=== PATIENT | female | born 1965 | race Caucasian/White ===

== ENCOUNTER → 2024-02-01 14:38 | Outpatient (REF) | payer BC, SELFPAY | LOC: HWRAD 14:38 | PROVIDERS: ATTENDING PHYSICIAN Nurse Practitioner Family; FAMILY PHYSICIAN Internal Medicine | DX: N95.0 Postmenopausal bleeding (principal) | CPT/HCPCS: 76830; 76856 ==

== ENCOUNTER → 2024-05-23 13:42 | Outpatient (REF) | payer BC, SELFPAY | LOC: WDC 13:42 | PROVIDERS: ATTENDING PHYSICIAN Nurse Practitioner Family; FAMILY PHYSICIAN Internal Medicine | DX: Z12.31 Encounter for screening mammogram for malignant neoplasm of breast (principal) | CPT/HCPCS: 77063; 77067 ==

== ENCOUNTER 2024-05-28 06:18 | Day surgery (SDC) | payer BC, SELFPAY ==
[2024-05-21 12:32] VITALS: BMI 16.9
[2024-05-28] VITALS (10 sets, daily range): BP systolic 88–113; BP diastolic 46–78; BMI 17.7
[2024-05-28] MEDS: NEURONTIN 100 MG PO (10:05)
[2024-05-28] MEDS: NORMOSOL-R/PLASMALYTE-A 1000 IV (10:20)
[2024-05-28] MEDS: DILAUDID 0.25 MG IV ×2 (12:17→12:32)
--- NOTE | 2024-05-28 13:17 | SUR.PHASEI ---
medicated x2 with .25mg IV Dilaudid for abdominal cramping. Also used warm blanket to abd for cramping. some relief, pain tolerable, vss, - spoke with Dr Calabrese in [place] - questions answered.
--- NOTE | 2024-05-28 23:00 | W.IMMPOSTOP ---
Surgical Immed Post Op Note
-
Primary Surgeon: Kiana Calabrese DO
Assisting Surgeon: none
Pre-op Diagnosis: Postmenopausal bleeding
Post-op Diagnosis: same
Procedure Performed: Diagnostic hysteroscopy D&C
Anesthesia Type: general LMA Dr. Perez
Specimen / Cultures: 1. pap smear 2. endocervical curettings 3. endometrial curettings
Estimated Blood Loss: 2ml
Complications: none
Operative Findings: Endometrial lining is thin, atrophic with no evidence of mass, polyp, tumor. Normal appearing endocervical canal.
Counts correct times 2.
Stable to recovery.
Dictated.
== END 2024-05-28 13:25 | disposition home or self-care (01) ==
LOC: SDS 06:18
PROVIDERS: ATTENDING PHYSICIAN Obstetrics & Gynecology; FAMILY PHYSICIAN Internal Medicine
DX: N95.0 Postmenopausal bleeding (principal); N85.8 Other specified noninflammatory disorders of uterus
CPT/HCPCS: 58558; 88305; 36415; 88341; 88342; 93005; G0123

== ENCOUNTER → 2025-01-22 09:10 | Outpatient (REF) | payer BC, SELFPAY | LOC: MRI 09:10 | PROVIDERS: ATTENDING PHYSICIAN Internal Medicine Rheumatology; FAMILY PHYSICIAN Internal Medicine | DX: M32.9 Systemic lupus erythematosus, unspecified (principal) | CPT/HCPCS: 72195 ==

== ENCOUNTER 2025-04-27 06:34 | Emergency (ER) | payer BC, SELFPAY ==
[2025-04-27 06:37] VITALS: BP 92/50
[2025-04-27 07:00] VITALS: BMI 17.1
[2025-04-27 07:10] VITALS: BP 84/51
[2025-04-27 07:31] LABS: Hematocrit 32.2 % (37.0-47.0); Hemoglobin 10.8 g/dL (12.0-16.0); Mean Corp Hgb Conc. 33.5 g/dL (33.0-37.0); Mean Corpuscular Volume 101.6 fL (81.0-99.0); Platelet Count 235 10^3/uL (130-400); Red Cell Dist. Width 12.5 % (11.5-14.5)
[2025-04-27 07:39] LABS: Urine Character Clear (Clear)
[2025-04-27 07:44] LABS: ALT (SGPT) 40 U/L (0-35); AST (SGOT) 40 U/L (14-36); Albumin 3.8 g/dl (3.5-5.0); Alkaline Phosphatase 32 U/L (38-126); Blood Urea Nitrogen 17 mg/dl (7-17); Calcium 8.8 mg/dl (8.4-10.2); Carbon Dioxide 28 mmol/L (22-30); Chloride 105 mmol/L (98-107); Estimated Creatinine Clearance 60 ml/min; Glucose 92 mg/dl (70-99); Lipase 423 U/L (23-300); Potassium 4.5 mmol/L (3.5-5.1); Sodium 136 mmol/L (135-145); Total Protein 6.5 g/dl (6.3-8.2); eGFR > 60.00
[2025-04-27 08:10] LABS: Urine Red Blood Cell 0-2 /HPF (0-2); Urine Squamous Cell 0-2 /LPF (Few); Urine White Cell 0-2 /HPF (0-5)
--- NOTE | 2025-04-27 08:25 | ED.GENMED ---
History of Present Illness
General
Chief Complaint: Flank Pain
Source: patient
Exam Limitations: none
Time Seen by Provider: 04/27/25 07:47
Nursing documentation reviewed up to this point in time: agreed with
History of Present Illness
History of Present Illness:
59-year-old female with history as noted significant for lupus, CIDP who presents to the emergency department for evaluation of abdominal and flank pain. Patient reports symptoms have been intermittent over the past 4 weeks�she describes waxing and
waning pain in the right upper abdomen that radiates towards the right flank. She has not noticed any clear trigger although symptoms generally seem to be worse at night. No relieving factors noted. She reports she has associated nausea but has
not had any vomiting although this morning she said she nearly vomited which ultimately prompted ER visit. She denies any diarrhea or constipation reports normal color to her stools. She denies any dysuria, hematuria, change in frequency or dark
urine. She denies having had similar symptoms in the past. Denies prior abdominal surgeries. Of note she is on CellCept and Plaquenil chronically.
Past History
Past History
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
ED Past Surgical History: Orthopedic (Had right hip pinned 10 weeks ago for a stress fracture) and Other
Social History
Tobacco: Non-smoker
Alcohol: None
Drug: None
Personal: Single
Living: with family
Family History
Family History: Other (Father with pancreatic cancer)
Review of Systems
Review of Systems
All Other Systems: ROS reviewed and negative except as documented in HPI and ROS
Constitutional: Denies fever or chills
Respiratory: Denies trouble breathing
Cardiac: Denies chest pain
ABD/GI: Reports abdominal pain and nausea; Denies vomiting, diarrhea or constipated
: Reports flank pain; Denies dysuria, frequency, bleeding or dark urine
Musculoskeletal: Denies neck pain
Neurological: Denies dizzy or headache
Phy Exam
Physical Exam
Physical Exam:
General: Awake, alert, oriented x3; no acute distress
Head: Normocephalic, atraumatic
Eyes: Conjunctiva normal, sclera anicteric
Throat: Airway intact, handling secretions
Neck: Trachea midline, supple without meningismus
Lungs: Clear to auscultation bilaterally, no wheezing, rales, rhonchi
Heart: Regular rate and rhythm, no murmurs, gallops, or rubs
Abd: Soft, non distended, tender to palpation in the right upper quadrant
Back: No CVA tenderness
Neuro: Grossly intact
Skin: no rash in area of concern
Extremities: No edema in extremities, warm and well-perfused
Scores
Heart Failure Risk
Heart Failure Risk Score: Not Applicable
Heart Score for Chest Pain Patients
STEMI patient?: Not applicable
Withdrawal Assessment of Alcohol
Withdrawal Assessment Completed?: Not applicable
Course
Orders/Labs/Results
Orders:
Orders
04/27/25 07:04
Complete Blood Count/With Diff Urgent
Comprehensive Metabolic Panel Urgent
Lipase Urgent
Urinalysis Reflex To Culture Urgent
Date Specimen was Collected: 04/27/25
Time Specimen was Collected: 06:56
Urine Microscopic Reflex Cult Urgent
04/27/25 07:49
US Abdomen Complete/Upper Urgent
Comment:
Reason For Exam: right flank pain, nausea, abnormal LFTs
04/27/25 08:26
0.9% Sodium Chloride 1000 ml [Nss] 1,000 ml IV BOLUS
04/27/25 09:34
CT Abd/pelvis W Iv Cont Urgent
Comment:
Reason For Exam: abd pain, nausea, upper TTP; abnormal LFTs
Abnormal Lab Results
04/27/25
07:04
RBC 3.17 L 10^6/uL
(4.20-5.40)
Hgb 10.8 L g/dL
(12.0-16.0)
Hct 32.2 L %
(37.0-47.0)
MCV 101.6 H fL
(81.0-99.0)
MCH 34.1 H pg
(27.0-31.0)
Absolute Eos (auto) 4.5 H 10^3/uL
(0-0.7)
Neutrophils % 39.0 L %
(42.2-75.2)
Lymphocytes % 12.8 L %
(20.5-51.1)
Eosinophils % 42.2 H %
(0-6)
Total Bilirubin 0.1 L mg/dl
(0.2-1.3)
AST 40 H U/L
(14-36)
ALT 40 H U/L
(0-35)
Alkaline Phosphatase 32 L U/L
(38-126)
Lipase 423 H U/L
(23-300)
Ur Occult Blood Reflex 1+ A
(Negative)
Urine Albumin (Reflex) 1+ A
(Neg - Trace)
04/27/25 07:04
04/27/25 07:04
Vital Signs
Initial and Last Documented VS:
Initial Vital Signs
Temp Pulse Resp BP Pulse Ox
37.1 C 68 22 92/50 98
04/27/25 06:37 04/27/25 06:37 04/27/25 06:37 04/27/25 06:37 04/27/25 06:37
Last Documented Vital Signs
Temp Pulse Resp BP Pulse Ox
37.1 C 60 18 84/49 100
04/27/25 06:37 04/27/25 09:42 04/27/25 09:42 04/27/25 09:42 04/27/25 09:42
MDM/Problems Addressed
Differential Diagnosis Includes:
Cholelithiasis, cholecystitis, choledocholithiasis, pancreatitis, gastritis, enteritis, PUD, nephrolithiasis
MDM/Problems Addressed:
59-year-old female presents for evaluation of right upper abdomen and flank pain associated with nausea over the past few weeks. Symptoms have been intermittent but it sounds like generally worsening this morning nearly vomited which prompted ER
visit. Soft blood pressure 92/50 but otherwise acceptable vital signs. Patient says soft blood pressures chronic. Physical exam is as above. She had lab work sent in [facility] top normal and significantly increased from patient's prior
baselines, hemoglobin 10.8 which is stable. Chemistry was significant for elevated transaminases (present on previous labs) as well as an elevated lipase (new). T. bili is normal. Her urinalysis is essentially bland. Plan to check upper abdominal
ultrasound. Provide some IV fluids. Reassess after the above.
Upper abdominal ultrasound no acute abnormalities noted; consistent symptoms and tenderness will plan to send for CT abdomen.
CT abdomen shows no acute abnormalities that would account for her symptoms. Although her lipase is marginally elevated she had no pancreatic inflammation on CT and overall degree of elevation really not consistent with acute pancreatitis. Her
LFTs are slightly elevated but chronically so. Overall I wonder if this could be gastritis or PUD. She should be seen by GI and close follow-up and I think would be reasonable to start her on a PPI and Carafate. Patient is requesting discharge
from the hospital does not wish to stay and I think outpatient follow-up is reasonable. I did send a message to the GI office to facilitate follow-up plan. Spoke about return precautions, all questions answered.
Chronic conditions affecting care:
Lupus, CIDP
*Radiology
Radiology exam reviewed: radiology read reviewed
*Pulse Oximetry
SaO2: 100
Oxygen Mode of Delivery: Room air
Patient hypoxic: no (100%)
*Critical Care Note
Total Time (30-74mins, 75-104mins- exclusive of procedures): Not Applicable
Data Reviewed
Source: patient and records
ED Attending Note
-
Portions of this chart may have been created with voice recognition software.� Occasional wrong word or��sound alike� substitutions may have occurred due to the inherent limitations of voice recognition software.
Discharge Plan
Departure
Patient Disposition: Home (Routine Discharge)
Date of Disposition: 04/27/25
Time of Disposition: 11:19
Patient with high blood pressure during this ER visit?: No
Discharge Problem:
Abdominal pain
Instructions: Abdominal Pain
Prescriptions:
New
pantoprazole [Protonix] 40 mg tablet,delayed release (DR/EC)
40 mg PO DAILY Qty: 30 0RF
sucralfate 100 mg/mL suspension
10 ml PO ACHS Qty: 1000 0RF
No Action
hydroxychloroquine 200 MG tablet
200 mg PO BID
oxycodone-acetaminophen [Percocet] 1 EACH tablet
1 - 2 ea PO Q4HPRN PRN (Reason: break thgough pain, CDIP pain)
Patient Comments:
10mg/325
duloxetine 30 MG capsule,delayed release(DR/EC)
30 mg PO DAILY
Gammagard
40 grams IV .[id number]
mycophenolate mofetil [CellCept] 500 mg Tablet
500 mg PO TID
Referrals:
Eliceo Thomas MD [Family Provider, Internal Medicine]
Bakari Hodges DO [Active, Gastroenterology] - Call in 1-3 days for appt
Activity Restrictions/Additional Instructions:
Thank you for visiting the Emergency Department at [facility].
1. Please schedule a follow up appointment as directed. Call first thing tomorrow morning to make an appointment.
2. If indicated, please take your medications as instructed and indicated on discharge paperwork.
3. If any of your symptoms do not improve, or persist, or become more severe within 6-12 hours, please return to the emergency department for further care.
4. Please return to the emergency department if you develop a headache, neck pain/stiffness, fever greater than 100.4F, chest pain, shortness of breath, persistent nausea, vomiting, slurred speech, difficulty walking, numbness/tingling, weakness,
signs of infection or any other symptoms that are worrisome to you.
Please call [phone] if you have any questions.
Interventions
Interventions:
*Risk Screen - Suicide Last Done: 04/27/25 06:37
*General Assessment Last Done: 04/27/25 07:01
*Neglect/Abuse Screening Last Done: 04/27/25 06:37
PS-Iwosqw-Cnvnlqmppi Assessment Last Done: 04/27/25 07:01
ED-Female Genitourinary Assessment Last Done: 04/27/25 07:02
Discharge Date and Time
Print Language: [id number]
[2025-04-27 08:41] VITALS: BP 98/51
[2025-04-27 08:41] LABS: Nucleated Red Blood Cells % 0 %
[2025-04-27] MEDS: NSS 1000 IV (08:42)
[2025-04-27 09:42] VITALS: BP 84/49
[2025-04-27 11:27] VITALS: BP 94/47
== END 2025-04-27 11:55 | disposition home or self-care (01) ==
LOC: EMR 06:34
PROVIDERS: Student in an Organized Health Care Education/Training Program; EMERGENCY PHYSICIAN Emergency Medicine; FAMILY PHYSICIAN Internal Medicine
DX: R10.11 Right upper quadrant pain (principal); M32.9 Systemic lupus erythematosus, unspecified; G61.81 Chronic inflammatory demyelinating polyneuritis; E05.90 Thyrotoxicosis, unspecified without thyrotoxic crisis or storm; Z79.624 Long term (current) use of inhibitors of nucleotide synthesis
CPT/HCPCS: 99284; 96360; 74177; 76700; 80053; 81003; 81015; 83690; 85025; Q9967

== ENCOUNTER 2025-05-28 06:27 | Day surgery (SDC) | payer BC, SELFPAY | END 2025-05-28 10:57 | disposition home or self-care (01) | LOC: GI 06:27 | PROVIDERS: ATTENDING PHYSICIAN Internal Medicine | DX: R10.85 Abdominal pain of multiple sites (principal); K44.9 Diaphragmatic hernia without obstruction or gangrene; K31.89 Other diseases of stomach and duodenum; K22.89 Other specified disease of esophagus; K29.50 Unspecified chronic gastritis without bleeding | CPT/HCPCS: 43239; 88305; 88342 ==